=== PATIENT | male | born 1990 | race Hispanic/Latino ===

== ENCOUNTER 2017-08-03 11:44 | Emergency (ER) | payer MEDICAID ==
[2017-08-03 11:48] VITALS: BMI 23.6
[2017-08-03 11:51] VITALS: BP 124/78; PULSE 65; RESP 18; TEMP 97.8; O2SAT 100
--- NOTE | 2017-08-03 12:09 | C.PDOC ---
History Of Present Illness Patient reports two day history of decreased hearing in R ear. States that he went to the ED at [place] and was found to have a cerumen impaction and given Debrox, states "the ear drops made it worse". No other symptoms. Time Seen by Provider: 08/03/17 11:53 Chief Complaint (Nursing): ENT Problem History Per: Patient History/Exam Limitations: None Onset/Duration Of Symptoms: Days Quality (Ear): Other (decreased hearing) Symptoms Have Been: Continuous Past Medical History Reviewed: Historical Data, Nursing Documentation, Vital Signs Vital Signs: Last Vital Signs Temp 97.8 F 08/03/17 11:48 Pulse 65 08/03/17 11:48 Resp 18 08/03/17 11:48 BP 124/78 08/03/17 11:48 Pulse Ox 100 08/03/17 11:48 - Medical History PMH: No Chronic Diseases Family History: States: No Known Family Hx - Social History Hx Alcohol Use: No Hx Substance Use: No Review Of Systems Except As Marked, All Systems Reviewed And Found Negative. Constitutional: Negative for: Fever ENT: Positive for: Ear Pain Respiratory: Negative for: Cough, Shortness of Breath Gastrointestinal: Negative for: Nausea, Vomiting Skin: Negative for: Rash Physical Exam - Physical Exam Appears: Well, Non-toxic, No Acute Distress Skin: Normal Color Head: Atraumatic Eye(s): bilateral: Normal Inspection Ear(s): Bilateral: TM Obscured By Wax (R more than L) Oral Mucosa: Moist Chest: Symmetrical Cardiovascular: Rhythm Regular Respiratory: Normal Breath Sounds Gastrointestinal/Abdominal: Normal Exam Neurological/Psych: Oriented x3 Gait: Steady ED Course And Treatment O2 Sat by Pulse Oximetry: 100 Medical Decision Making Medical Decision Making: Moderate amount of earwax removed by myself with curette. Patient advised to continue using Debrox. Patient continuously trying to stick fingers in his ear to remove more wax, advised him not to do this. Disposition - Disposition Referrals: Oscar Jefferson MD [Staff Provider] - Disposition: HOME/ ROUTINE Disposition Time: 12:10 Condition: GOOD Additional Instructions: LUAN HERNANDEZ, thank you for letting us take care of you today. Your provider was Kathleen Rosenbaum MD and you were treated for EARWAX IMPACTION. The emergency medical care you received today was directed at your acute symptoms. If you were prescribed any medication, please fill it and take as directed. It may take several days for your symptoms to resolve. Return to the Emergency Department if your symptoms worsen, do not improve, or if you have any other problems. Please contact your doctor or call one of the physicians/clinics you have been referred to that are listed on the Patient Visit Information form that is included in your discharge packet. Bring any paperwork you were given at discharge with you along with any medications you are taking to your follow up visit. Our treatment cannot replace ongoing medical care by a primary care provider outside of the emergency department. Thank you for allowing the [facility] team to be part of your care today. If you had an X-Ray or CT scan: A Radiologist will review the ED reading if any change in treatment is needed we will contact you. If you had a blood, urine, or wound culture: It will take several days for the results, if any change in treatment is needed we will contact you. If you had an STI test: It will take 48 hours for the results. Please call after 1 week if you have not heard back. Instructions: Ear Wax Impaction (DC) Forms: [employer] (Austrian) - Clinical Impression Clinical Impression: Impacted cerumen of right ear
== END 2017-08-03 12:22 | disposition home or self-care (01) ==
LOC: C.ER 11:44
DX: H61.21 Impacted cerumen, right ear (principal)

== ENCOUNTER 2017-09-05 16:03 | Emergency (ER) | payer MEDICAID, OTHER ==
[2017-09-05 16:04] VITALS: BMI 23.6
[2017-09-05 16:08] VITALS: BP 123/69; PULSE 61; RESP 16; TEMP 98.6; O2SAT 97
--- NOTE | 2017-09-05 16:39 | C.PDOC ---
History Of Present Illness 27 yo male c/o decreased hearing in the left ear. "Some times its the right ear. It moves." Pt note that he has been evaluated in [place] a few months ago and was told that he had wax and was given Debrox. "I dont use them." Denies discharge, pain, fever, URI symptoms or headaches. Has not f/u with ENT. Time Seen by Provider: 09/05/17 16:28 Chief Complaint (Nursing): ENT Problem History Per: Patient History/Exam Limitations: None Onset/Duration Of Symptoms: Intermittent Episodes Current Symptoms Are (Timing): Still Present Past Medical History Vital Signs: Last Vital Signs Temp 98.6 F 09/05/17 16:06 Pulse 61 09/05/17 16:06 Resp 16 09/05/17 16:06 BP 123/69 09/05/17 16:06 Pulse Ox 97 09/05/17 16:39 Family History: States: Unknown Family Hx - Social History Hx Alcohol Use: No Hx Substance Use: No - Immunization History Hx Tetanus Toxoid Vaccination: No Hx Influenza Vaccination: No Hx Pneumococcal Vaccination: No Review Of Systems Except As Marked, All Systems Reviewed And Found Negative. Physical Exam - Physical Exam Appears: Well, Non-toxic, No Acute Distress Skin: Normal Color, Warm, Dry Head: Atraumatic, Normacephalic Eye(s): bilateral: Normal Inspection, PERRL, EOMI Ear(s): Bilateral: TM Obscured By Wax Nose: Normal Neck: Normal, Normal ROM, Supple Chest: Symmetrical Cardiovascular: Rhythm Regular Respiratory: Normal Breath Sounds Back: Normal Inspection Extremity: Normal ROM Neurological/Psych: Oriented x3, Normal Speech ED Course And Treatment O2 Sat by Pulse Oximetry: 97 Progress Note: Pt was instructed to use the Debrox and follow up with ENT in 1- 2 days. Disposition - Disposition Referrals: Oscar Jefferson MD [Staff Provider] - Disposition: HOME/ ROUTINE Disposition Time: 16:38 Condition: STABLE Additional Instructions: Follow up with Dr Jefferson in 1-2 days. Return to ER if symptoms persist or worsen. Instructions: Ear Wax Impaction (DC) Forms: [employer] ([place] Islander) - Clinical Impression Clinical Impression: Impacted cerumen of both ears
== END 2017-09-05 16:45 | disposition home or self-care (01) ==
LOC: C.ER 16:03
DX: H61.23 Impacted cerumen, bilateral (principal)

== ENCOUNTER 2017-09-26 14:37 | Emergency (ER) | payer OTHER ==
[2017-09-26 14:50] VITALS: BMI 22.5
[2017-09-26 14:52] VITALS: BP 112/66; PULSE 69; RESP 18; TEMP 98.1; O2SAT 98
--- NOTE | 2017-09-26 15:01 | C.PDOC ---
History Of Present Illness 27 year old presents to ED for evaluation of skin "drooping" around his periumbilical area. 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 He stated he came in to the ED to be cautious and make sure he does not have a hernia. Denies pain, fever, chills, nausea, vomiting. Time Seen by Provider: 09/26/17 14:54 Chief Complaint (Nursing): Abnormal Skin Integrity History Per: Patient History/Exam Limitations: no limitations Onset/Duration Of Symptoms: Days Current Symptoms Are (Timing): Still Present Location Of Injury: Anterior: Abdomen (sking drooping around periumbilical area. ) Quality Of Symptoms: denies: Painful Recent travel outside of the [place]: No Past Medical History Reviewed: Historical Data, Nursing Documentation, Vital Signs Vital Signs: Last Vital Signs Temp 98.1 F 09/26/17 14:50 Pulse 69 09/26/17 14:50 Resp 18 09/26/17 14:50 BP 112/66 09/26/17 14:50 Pulse Ox 98 09/26/17 15:20 Surgical History: No Surg Hx Family History: States: No Known Family Hx - Social History Hx Alcohol Use: No Hx Substance Use: No - Immunization History Hx Tetanus Toxoid Vaccination: No Hx Influenza Vaccination: No Hx Pneumococcal Vaccination: No Review Of Systems Except As Marked, All Systems Reviewed And Found Negative. Constitutional: Negative for: Fever Gastrointestinal: Negative for: Nausea, Vomiting, Abdominal Pain Neurological: Negative for: Weakness, Numbness Physical Exam - Physical Exam Appears: Non-toxic Skin: Warm, Dry Head: Atraumatic, Normacephalic Eye(s): bilateral: Normal Inspection Oral Mucosa: Moist Neck: Supple Chest: Symmetrical Cardiovascular: Rhythm Regular, No Murmur Respiratory: Normal Breath Sounds, No Rales, No Rhonchi, No Wheezing Gastrointestinal/Abdominal: Soft, No Tenderness, No Guarding, No Rebound, No Hernia Neurological/Psych: Oriented x3 Gait: Steady ED Course And Treatment O2 Sat by Pulse Oximetry: 98 (RA) Pulse Ox Interpretation: Normal Medical Decision Making Medical Decision Making: Impression: Patient was fine and in no pain. He had a normal exam and was discharged home. Disposition - Disposition Disposition: HOME/ ROUTINE Disposition Time: 15:00 Condition: STABLE Forms: [employer] (Maldivian), General Discharge Instructions - POA Present On Arrival: None - Clinical Impression Clinical Impression: Normal exam - Scribe Statement The provider has reviewed the documentation as recorded by the Scribe Sami Williams Provider Attestation: All medical record entries made by the Salibkevin were at my direction and personally dictated by me. I have reviewed the chart and agree that the record accurately reflects my personal performance of the history, physical exam, medical decision making, and the department course for this patient. I have also personally directed, reviewed, and agree with the discharge instructions and disposition.
== END 2017-09-26 15:27 | disposition home or self-care (01) ==
LOC: C.ER 14:37
DX: Z00.00 Encounter for general adult medical examination without abnormal findings (principal)

== ENCOUNTER 2018-01-25 18:18 | Emergency (ER) | payer MEDICAID, OTHER ==
[2018-01-25 18:19] VITALS: BMI 22.5
--- NOTE | 2018-01-25 18:45 | C.PDOC ---
History Of Present Illness 27 year old male presents to the emergency department with complaints of ear-wax buildup in his left ear. Patient feels fullness in his ear but denies pain and tenderness. Time Seen by Provider: 01/25/18 18:35 Chief Complaint (Nursing): ENT Problem History Per: Patient History/Exam Limitations: None Onset/Duration Of Symptoms: Hrs Current Symptoms Are (Timing): Still Present Quality (Ear): denies: Pain W/Touch, Swelling, Other (tenderness) Symptoms Have Been: Episodic Past Medical History Reviewed: Historical Data, Nursing Documentation, Vital Signs - Medical History PMH: No Chronic Diseases Surgical History: No Surg Hx Family History: States: No Known Family Hx - Social History Hx Alcohol Use: No Hx Substance Use: No - Immunization History Hx Tetanus Toxoid Vaccination: No Hx Influenza Vaccination: No Hx Pneumococcal Vaccination: No Review Of Systems Constitutional: Negative for: Fever, Chills ENT: Negative for: Ear Pain, Ear Discharge Physical Exam - Physical Exam Appears: Well, Non-toxic, No Acute Distress Skin: Normal Color, Warm, Dry Head: Atraumatic, Normacephalic Eye(s): bilateral: Normal Inspection, EOMI Ear(s): Left: Other (excessive wax, normal TM, no erythema, no tenderness), Bilateral: Normal Nose: Normal Neck: Normal ROM Chest: Symmetrical, No Tenderness Extremity: Normal ROM Neurological/Psych: Oriented x3, Normal Speech Gait: Steady Medical Decision Making Medical Decision Making: Patient with ear wax in bilateral ears. Attempt to curette small amount out. 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 - Scribe Statement The provider has reviewed the documentation as recorded by the Scribe (Rogerio Kirby) All medical record entries made by the Scribe were at my direction and personally dictated by me. I have reviewed the chart and agree that the record accurately reflects my personal performance of the history, physical exam, [facility] decision making, and the department course for this patient. I have also personally directed, reviewed, and agree with the discharge instructions and disposition.
[2018-01-25 18:53] VITALS: BP 127/79; PULSE 102; RESP 18; TEMP 98.6; O2SAT 100
== END 2018-01-25 18:55 | disposition home or self-care (01) ==
LOC: C.ER 18:18
DX: H61.23 Impacted cerumen, bilateral (principal)